=== PATIENT | female | born 1975 | race Asian ===

== ENCOUNTER → 2017-10-04 | Outpatient (CLI) | payer OTHER | LOC: FIMAGING 15:36 | PROVIDERS: ATTEND Family Medicine | DX: N83.202 Unspecified ovarian cyst, left side (principal) ==

== ENCOUNTER 2018-07-31 02:46 | Day surgery (SDC) | payer OTHER ==
[2018-07-31] MEDS ORDERED: ONDANSETRON 4 MG/2 ML VIAL IVP ONE ×3 (02:59→05:42)
[2018-07-31] MEDS ORDERED: fentaNYL 100 MCG/2 ML INJ IVP ONE (03:00)
--- NOTE | 2018-07-31 03:44 | EDPHY ---
H & P Time Seen by Provider: 07/31/18 02:55 HPI/ROS: CHIEF COMPLAINT: Abdominal pain History by patient HISTORY OF PRESENT ILLNESS: 42-year-old woman with a history of multiple ovarian cysts in the past presents complaining of severe left lower quadrant pain which began acutely and has been progressive since midnight, about 2 hr prior to arrival. Patient states that she has had some intermittent episodes of left lower quadrant pain between her menses since she was diagnosed with a cyst on that side in September by ultrasound at an outside hospital. She has never had episode like this before. She has had a large today and cyst removed surgically in the past. She denies . Last menstrual cycle was 2 weeks ago and was normal and on time. Pain does go somewhat into her back and across her abdomen. She tried taking ibuprofen with no relief. REVIEW OF SYSTEMS: As in HPI, and all other systems reviewed and are negative Smoking Status: Never smoked Physical Exam: General Appearance: Alert, uncomfortable appearing. Eyes: Pupils equal and round, extraocular movements intact, no pallor or injection. Mouth: Mucous membranes moist. Pharynx clear Respiratory: Normal, effort, lungs are clear to auscultation. No wheezes, rales or rhonchi. Cardiovascular: Regular rate and rhythm. S1, S2, no murmurs, gallops or rubs appreciated Gastrointestinal: bowel sounds absent, Abdomen is soft and diffusely tender in the lower abdomen with guarding on the left side, no masses Back: No CVA tenderness, no bony tenderness Neurological: Awake, alert and oriented x 3, no pronator drift, normal gait, no pronator drift Skin: Warm and dry, no rashes. Musculoskeletal: No deformities or tenderness. Extremities: full range of motion, no edema Psychiatric: Patient has normal affect, there is no agitation. Constitutional: Initial Vital Signs Temperature (C) 36.6 C 07/31/18 02:49 Heart Rate 72 07/31/18 02:49 Respiratory Rate 18 07/31/18 02:49 O2 Sat (%) 100 07/31/18 02:49 Allergies/Adverse Reactions: latex Allergy (Verified 07/31/18 02:48) penicillin V Allergy (Verified 07/31/18 02:48) Home Medications: Medication Instructions Recorded Motrin (*) 07/31/18 MDM/Departure - MDM Medications Given: Discontinued Medications Fentanyl (Sublimaze) 50 mcg IVP EDNOW ONE Stop: 07/31/18 03:01 Last Admin: 07/31/18 03:27 Dose: 50 mcg Ondansetron HCl (Zofran) 4 mg IVP EDNOW ONE Stop: 07/31/18 03:00 Last Admin: 07/31/18 03:27 Dose: 4 mg ED Course/Re-evaluation: 42-year-old woman with known ovarian cyst presents with acute onset severe left lower quadrant pain with abdominal tenderness. Patient is hemodynamically stable. Initial hemoglobin is within normal limits. Patient is not . I was concerned about ruptured ovarian cyst versus torsion. I performed a bedside ultrasound to evaluate for free fluid and patient had free fluid in the pelvis. She remained hemodynamically stable in the emergency department, but I was concerned about ongoing bleeding for ruptured cyst or complications from ovarian torsion. I discussed the case with Dr. Diane, on-call for senior database programmer who will see the patient at [facility]. I discussed the case with Dr. Llanes in the emergency department at [facility] and the patient was transferred by ambulance for further evaluation and treatment. - Depart Disposition: [facility] Inpatient Acute Clinical Impression: Free fluid in pelvis Abdominal pain Qualifiers: Abdominal location: left lower quadrant Qualified Code(s): R10.32 - Left lower quadrant pain Condition: Fair
[2018-07-31 03:58] LABS: PLATELET COUNT 351 10^3/uL (150-400)
[2018-07-31] MEDS ORDERED: NS 1,000 ML IV ONE (04:13)
--- NOTE | 2018-07-31 04:13 | EDPHY ---
H & P Stated Complaint: C/O LLQ PAIN SINCE 1200- STATES IT IS AN OVARAIN CYST Time Seen by Provider: 07/31/18 02:55 HPI/ROS: HPI CHIEF COMPLAINT: Left lower quadrant abdominal pain, possible ovarian cyst, transfer from [facility] ER. HISTORY OF PRESENT ILLNESS: 42-year-old female, history of ovarian cysts, presents emergency room with left lower quadrant adnexal abdominal pain. States he felt some discomfort yesterday however the pain got worse around midnight rather severe currently 07/08. She went to [facility] ER with a evaluated her. [place] that she had intra-abdominal or pelvic free fluid was recommended to be transferred here for further evaluation. Patient denies any chest pain shortness of breath, denies any vomiting. Denies any abnormal vaginal discharge, denies any diarrhea. Pain is located left adnexa left lower quadrant. Sometimes goes into her left flank. Patient denies being . Lab work reviewed from [facility] ER CBC was stable. Negative test. Past Medical History: She does have a history of ovarian cyst. Past Surgical History: Ovarian cyst removal Social History: Denies drugs alcohol tobacco. Family History: Noncontributory ROS REVIEW OF SYSTEMS: 10 Systems were reviewed and negative with the exception of the elements mentioned in the history of present illness. Exam Constitutional nontoxic triage nursing summary reviewed, vital signs reviewed, awake/alert. Eyes normal conjunctivae and sclera, EOMI, PERRLA. HENT normal inspection, atraumatic, moist mucus membranes, no epistaxis, neck supple/ no meningismus, no raccoon eyes. Respiratory clear to auscultation bilaterally, normal breath sounds, no respiratory distress, no wheezing. Cardiovascular rate normal, regular rhythm, no murmur, no edema, distal pulses normal. Gastrointestinal mild tenderness to palpation left lower quadrant,, no rebound , no guarding, normal bowel sounds, no distension, no pulsatile mass. Genitourinary no CVA tenderness. Musculoskeletal no midline vertebral tenderness, full range of motion, no calf swelling, no tenderness of extremities, no meningismus, good pulses, neurovascularly intact. Skin pink, warm, & dry, no rash, skin atraumatic. Neurologic awake, alert and oriented x 3, AAOx3, moves all 4 extremities equally, motor intact, sensory intact, CN II-XII intact, normal cerebellar, normal vision, normal speech. Psychiatric normal mood/affect. Heme/Lymph/Immune no lymphadenopathy. Differential diagnosis includes but is not limited to and in no particular order : Ruptured ovarian cyst, ovarian torsion, TOA, ectopic Bowel obstruction, appendicitis, gallbladder disease, diverticulitis, colitis, enteritis, perforated viscus, gastritis, GERD, esophagitis, urinary tract infection, pyelonephritis, kidney stones Medical Decision Making: Plan for this patient patient continues to complain of pain. Will Re medicate her with IV fentanyl and IV Zofran. 2nd L fluid. Ultrasound pelvis with flow to rule out torsion ruptured ovarian cyst free fluid. Re-evaluation: Ultrasound results called to me shows a rather large left ovarian cyst 10 cm the left ovary and the cyst make a 12 cm area. Trace free fluid in the pelvis. There is no blood flow to this left ovary. Concerning for ovarian torsion. [id number]: I have consult OBGYN. Consulted and spoke with Dr. Salmeron, with OB, come and see in consult on the patient. Plan for OR for most likely ovarian torsion. Ultrasound results called to me at 5:15 a.m. Concerning for large left ovarian cyst with ovarian torsion no blood flow. Ob is already been consulted. Plan for OR. This called to me by Dr. Winston Source: Patient, EMS - Personal History Current Tetanus Diphtheria and Acellular Pertussis (TDAP): Yes - Medical/Surgical History Other PMH: OVARIAN CYST WITH INTERVENTION 2006 - Social History Smoking Status: Never smoked Constitutional: Initial Vital Signs Temperature (C) 36.6 C 07/31/18 02:49 Heart Rate 72 07/31/18 02:49 Respiratory Rate 18 07/31/18 02:49 O2 Sat (%) 100 07/31/18 02:49 O2 Delivery Mode Room Air Allergies/Adverse Reactions: latex Allergy (Verified 07/31/18 02:48) penicillin V Allergy (Verified 07/31/18 02:48) Medical Decision Making - Data Points Laboratory Results: Laboratory Results 07/31/18 04:42 07/31/18 04:42 Medications Given: Discontinued Medications Hydrocodone Bitart/Acetaminophen ([place] 5/325) 1 - 2 tab PO Q4HRS PRN PRN Reason: PACU, Pain Moderate Stop: 07/31/18 09:22 Last Admin: 07/31/18 12:17 Dose: 1 tab Bupivacaine HCl (Sensorcaine 0.5% Vial) Confirm Administered Dose 30 ml .ROUTE .STK-MED ONE Stop: 07/31/18 06:50 Last Admin: 07/31/18 08:38 Dose: 30 ml Fentanyl (Sublimaze) 50 mcg IVP EDNOW ONE Stop: 07/31/18 03:01 Last Admin: 07/31/18 03:27 Dose: 50 mcg Fentanyl (Sublimaze) 25 - 100 mcg IVP Q5M PRN PRN Reason: PACU, IMMEDIATE Pain control Stop: 07/31/18 09:22 Last Admin: 07/31/18 11:01 Dose: 25 mcg Hydromorphone HCl (Dilaudid) 0.5 mg IVP EDNOW ONE Stop: 07/31/18 04:22 Last Admin: 07/31/18 04:34 Dose: 0.5 mg Hydromorphone HCl (Dilaudid) 0.5 mg IVP EDNOW ONE Stop: 07/31/18 05:05 Last Admin: 07/31/18 05:08 Dose: 0.5 mg Sodium Chloride (Ns) 1,000 mls @ 0 mls/hr IV EDNOW ONE; Wide Open PRN Reason: Protocol Stop: 07/31/18 04:14 Last Admin: 07/31/18 04:35 Dose: 1,000 mls Lactated Ringer's (Lr) 1,000 mls @ 0 mls/hr IV ONCE ONE PRN Reason: As Directed Stop: 07/31/18 07:05 Last Admin: 07/31/18 07:24 Dose: 1,000 mls Ondansetron HCl (Zofran) 4 mg IVP EDNOW ONE Stop: 07/31/18 03:00 Last Admin: 07/31/18 03:27 Dose: 4 mg Ondansetron HCl (Zofran) 4 mg IVP EDNOW ONE Stop: 07/31/18 04:38 Last Admin: 07/31/18 04:39 Dose: 4 mg Ondansetron HCl (Zofran) 4 mg IVP EDNOW ONE Stop: 07/31/18 05:43 Last Admin: 07/31/18 05:43 Dose: 4 mg Promethazine HCl (Phenergan) 6.25 mg IVP ONCE ONE Stop: 11/02/18 06:28 Last Admin: 07/31/18 06:27 Dose: 6.25 mg Point of Care Test Results: Chemistry 07/31/18 07/31/18 03:20 03:18 POC Sodium 141 mEq/L mEq/L 140 mEq/L mEq/L (135-145) (135-145) POC Potassium 3.3 mEq/L mEq/L 3.3 mEq/L mEq/L (3.3-5.0) (3.3-5.0) POC Chloride 108.0 mEq/L mEq/L 106 mEq/L mEq/L (97-110) (97-110) POC Total CO2 19 mEq/L L mEq/L (22-31) POC BUN 16 mg/dL mg/dL 18 mg/dL mg/dL (7-23) (7-23) POC Creatinine 0.6 mg/dL mg/dL 0.6 mg/dL mg/dL (0.6-1.0) (0.6-1.0) POC Glucose 128 mg/dL H mg/dL 130 mg/dL H mg/dL (70-100) (70-100) POC Calcium 9.6 mg/dL mg/dL (8.5-10.4) POC Total Bilirubin 0.7 mg/dL mg/dL (0.1-1.4) POC AST 40 IU/L IU/L (14-46) POC ALT 61 IU/L H IU/L (9-52) POC Alk Phosphatase 50 IU/L IU/L (38-126) POC Total Protein 8.4 g/dL H g/dL (6.3-8.2) POC Albumin 4.4 g/dL g/dL (3.5-5.0) ISTAT H&H 07/31/18 03:18 POC Hgb 15.0 gm/dL gm/dL (12.6-16.3) POC Hct 44 % % (38-47) Urine Collection Date 07/31/18 Collection Time 03:58 HCG Results Negative Departure - Departure Disposition: [facility] Inpatient Acute Clinical Impression: Free fluid in pelvis, Ovarian torsion Abdominal pain Qualifiers: Abdominal location: left lower quadrant Qualified Code(s): R10.32 - Left lower quadrant pain Ovarian cyst Qualifiers: Laterality: left Qualified Code(s): N83.202 - Unspecified ovarian cyst, left side Condition: Good
[2018-07-31] MEDS ORDERED: HYDROmorphONE/DILAUDID 2 MG/ML INJ IVP ONE ×2 (04:21→05:04)
[2018-07-31] MEDS ORDERED: ONDANSETRON 4 MG/2 ML VIAL ONE ×2 (04:38→07:30)
[2018-07-31 04:53] LABS: PLATELET COUNT 308 10^3/uL (150-400)
[2018-07-31] MEDS ORDERED: HYDROmorphONE/DILAUDID 2 MG/ML INJ ONE (05:05)
[2018-07-31] MEDS ORDERED: PROMETHAZINE HCL 25 MG/ML INJ ONE (06:24)
[2018-07-31] MEDS ORDERED: PROMETHAZINE HCL 25 MG/ML INJ IVP ONE (06:27)
[2018-07-31] MEDS ORDERED: BUPIVACAINE 0.5% 30 ML SDV ONE (06:49)
[2018-07-31] MEDS ORDERED: LR 1,000 ML IV ONE (07:04)
[2018-07-31] MEDS ORDERED: MIDAZOLAM 2 MG/2 ML VIAL ONE (07:24)
[2018-07-31] MEDS ORDERED: PROPOFOL 200 MG/20 ML VIAL ONE (07:26)
[2018-07-31] MEDS ORDERED: fentaNYL 100 MCG/2 ML INJ ONE ×2 (07:26→10:59)
[2018-07-31] MEDS ORDERED: SUCCINYLCHOLINE CHLORIDE 200 MG/10 ML SYR IVP ONE (07:29)
[2018-07-31] MEDS ORDERED: ROCURONIUM 50 MG/5 ML VIAL ONE (07:29)
[2018-07-31] MEDS ORDERED: PHENYLEPHRINE HCL 100 MCG/ML SYR ONE (07:29)
[2018-07-31] MEDS ORDERED: LIDOCAINE 2% 2 ML INJ ONE ×2 (07:30)
[2018-07-31] MEDS ORDERED: KETOROLAC 30 MG/1 ML SDV ONE (07:30)
[2018-07-31] MEDS ORDERED: DEXAMETHASONE 4 MG/ML VIAL ONE (07:30)
[2018-07-31] MEDS ORDERED: CLINDAMYCIN 900 MG/DEXTROSE 50 ML IV ONE (07:33)
[2018-07-31] MEDS ORDERED: MIDAZOLAM 2 MG/2 ML VIAL IVP ONE (07:34)
--- NOTE | 2018-07-31 07:34 | PDHPUP ---
History & Physical Update H&P update statement: This history and physical update is based on an assessment of the patient which was completed after admission or registration (within 24 hours), but prior to the surgery/procedure. H&P update: H&P reviewed & patient examined, no change in patient's condition since H&P completed
--- NOTE | 2018-07-31 07:35 | PDANEPAE ---
ANE History of Present Illness ovarian torsion ANE Past Medical History - Cardiovascular History Hx Hypertension: No Hx Arrhythmias: No Hx Chest Pain: No Hx Coronary Artery / Peripheral Vascular Disease: No Hx CHF / Valvular Disease: No Hx Palpitations: No - Pulmonary History Hx COPD: No Hx Asthma/Reactive Airway Disease: No Hx Recent Upper Respiratory Infection: No Hx Oxygen in Use at Home: No Hx Sleep Apnea: No ANE Review of Systems Review of systems is: negative Review of Systems: - Exercise capacity Exercise capacity: >=4 METS ANE Patient History - Allergies Allergies/Adverse Reactions: latex Allergy (Verified 07/31/18 02:48) penicillin V Allergy (Verified 07/31/18 02:48) - Home Medications Home medications: home medication list seen and reviewed Home Medications: Motrin (*) 07/31/18 [Last Taken Unknown] - NPO status NPO Since - Liquids (Date): 07/31/18 NPO Since - Liquids (Time): 01:00 NPO Since - Solids (Date): 07/30/18 NPO Since - Solids (Time): 18:00 - Anes Hx Anes Hx: no prior problems - Smoking Hx Smoking Status: Never smoked ANE Labs/Vital Signs - Labs Result Diagrams: 07/31/18 04:42 07/31/18 04:42 - Vital Signs Blood Pressure: 112/61 Heart Rate: 82 Respiratory Rate: 16 O2 Sat (%): 98 Height: 160.02 cm Weight: 47.627 kg ANE Physical Exam - Airway Neck exam: FROM Mallampati Score: Class 2 Mouth exam: normal dental/mouth exam - Pulmonary Pulmonary: no respiratory distress - Cardiovascular Cardiovascular: regular rate and rhythym - ASA Status ASA Status: I, E ANE Anesthesia Plan Anesthesia Plan: general endotracheal anesthesia Urgent/Emergent Case: Keiraagnieszka pachecoemerson completed preop but documented later for safe timely pt care
--- NOTE | 2018-07-31 07:52 | PDGENHP ---
History and Physical - Chief Complaint Acute LLQ pain - History of Present Illness 42 yo presented to [facility] ER early this AM with acute onset LLQ pain that was continuous, excruciating, waxing/waning. Brief US at ER suggested large cyst or cyst rupture - transferred to [facility] ER were TVUS confirmed 10cm simple left ovarian cyst with definite torsion - no flow to that ovary. Right ovary normal. Pt confirms that she's had a long h/o large ovarian cysts. First in 2011 when a unilateral (she can't remember side) large simple cyst was laparoscopically drained/cystectomy. Then just earlier this year she was being worked up by [facility] for a RIGHT sided 10cm simple cyst with no acute concern for torsion. They had a plan to goto OR but never went because they moved houses and she wasn't really symptomatic. This pain began yesterday evening, she was not aware of these new findings of now NO cyst on the right and new large 10cm simple cyst on the left. History Information - Allergies/Home Medication List Allergies/Adverse Reactions: latex Allergy (Verified 07/31/18 02:48) penicillin V Allergy (Verified 07/31/18 02:48) Home Medications: Motrin (*) 07/31/18 [Last Taken Unknown] I have personally reviewed and updated: family history, medical history, social history, surgical history - Past Medical History no pertinent PMH - Surgical History Additional surgical history: H/o LS ovarian cystectomy in 2011, x 2 - Family History Positive for: non-pertinent - Social History Smoking Status: Never smoked Review of Systems Review of Systems: ROS: 10pt was reviewed & negative except for what was stated in HPI & below Physical Exam Physical Exam: Temp Pulse Resp BP Pulse Ox 36.9 C 82 16 112/61 98 07/31/18 06:33 07/31/18 07:35 07/31/18 07:35 07/31/18 07:35 07/31/18 07:35 O2 (L/minute) 2 Constitutional: appears nourished, uncomfortable Eyes: PERRL, anicteric sclera Ears, Nose, Mouth, Throat: moist mucous membranes, hearing normal Respiratory: no respiratory distress Gastrointestinal: no palpable masses, tenderness (LLQ to light and deep palp), No ascites, No galvez's sign, No hepatosplenomegally, No guarding, No rebound, No distension Genitourinary: no bladder fullness Skin: warm, normal color Musculoskeletal: full muscle strength, no muscle tenderness Psychiatric: interacting appropriately Lab Data & Imaging Review 07/31/18 04:42 07/31/18 04:42 WBC 8.39 10^3/uL (3.80-9.50) 07/31/18 04:42 RBC 3.90 10^6/uL (4.18-5.33) L 07/31/18 04:42 Hgb 13.0 g/dL (12.6-16.3) 07/31/18 04:42 POC Hgb 15.0 gm/dL (12.6-16.3) 07/31/18 03:18 Hct 37.5 % (38.0-47.0) L 07/31/18 04:42 POC Hct 44 % (38-47) 07/31/18 03:18 MCV 96.2 fL (81.5-99.8) 07/31/18 04:42 MCH 33.3 pg (27.9-34.1) 07/31/18 04:42 MCHC 34.7 g/dL (32.4-36.7) 07/31/18 04:42 RDW 11.9 % (11.5-15.2) 07/31/18 04:42 Plt Count 308 10^3/uL (150-400) 07/31/18 04:42 MPV 9.2 fL (8.7-11.7) 07/31/18 04:42 Neut % (Auto) 80.4 % (39.3-74.2) H 07/31/18 04:42 Lymph % (Auto) 15.0 % (15.0-45.0) 07/31/18 04:42 Young % (Auto) 2.9 % (4.5-13.0) L 07/31/18 04:42 Eos % (Auto) 1.0 % (0.6-7.6) 07/31/18 04:42 Baso % (Auto) 0.2 % (0.3-1.7) L 07/31/18 04:42 Nucleat RBC Rel Count 0.0 % (0.0-0.2) 07/31/18 04:42 Absolute Neuts (auto) 6.75 10^3/uL (1.70-6.50) H 07/31/18 04:42 Absolute Lymphs (auto) 1.26 10^3/uL (1.00-3.00) 07/31/18 04:42 Absolute Monos (auto) 0.24 10^3/uL (0.30-0.80) L 07/31/18 04:42 Absolute Eos (auto) 0.08 10^3/uL (0.03-0.40) 07/31/18 04:42 Absolute Basos (auto) 0.02 10^3/uL (0.02-0.10) 07/31/18 04:42 Absolute Nucleated RBC 0.00 10^3/uL (0-0.01) 07/31/18 04:42 Immature Gran % 0.5 % (0.0-1.1) 07/31/18 04:42 Immature Gran # 0.04 10^3/uL (0.00-0.10) 07/31/18 04:42 RBC/WBC/PLT Morphology TNP 07/31/18 02:50 Platelet Estimate TNP 07/31/18 02:50 POC Sodium 141 mEq/L (135-145) 07/31/18 03:20 Sodium 138 mEq/L (135-145) 07/31/18 04:42 POC Potassium 3.3 mEq/L (3.3-5.0) 07/31/18 03:20 Potassium 4.1 mEq/L (3.3-5.0) 07/31/18 04:42 POC Chloride 108.0 mEq/L (97-110) 07/31/18 03:20 Chloride 109 mEq/L (97-110) 07/31/18 04:42 Carbon Dioxide 18 mEq/l (22-31) L 07/31/18 04:42 POC Total CO2 19 mEq/L (22-31) L 07/31/18 03:20 Anion Gap 11 mEq/L (6-14) 07/31/18 04:42 POC BUN 16 mg/dL (7-23) 07/31/18 03:20 BUN 17 mg/dL (7-23) 07/31/18 04:42 Creatinine 0.6 mg/dL (0.6-1.0) 07/31/18 04:42 POC Creatinine 0.6 mg/dL (0.6-1.0) 07/31/18 03:20 Estimated GFR > 60 07/31/18 04:42 Glucose 119 mg/dL (70-100) H 07/31/18 04:42 POC Glucose 128 mg/dL (70-100) H 07/31/18 03:20 POC Calcium 9.6 mg/dL (8.5-10.4) 07/31/18 03:20 Calcium 9.0 mg/dL (8.5-10.4) 07/31/18 04:42 POC Total Bilirubin 0.7 mg/dL (0.1-1.4) 07/31/18 03:20 POC AST 40 IU/L (14-46) 07/31/18 03:20 POC ALT 61 IU/L (9-52) H 07/31/18 03:20 POC Alk Phosphatase 50 IU/L (38-126) 07/31/18 03:20 POC Total Protein 8.4 g/dL (6.3-8.2) H 07/31/18 03:20 POC Albumin 4.4 g/dL (3.5-5.0) 07/31/18 03:20 Patient ABO/Rh A POSITIVE 07/31/18 05:10 Antibody Screen NEGATIVE 07/31/18 05:10 Imaging Review: LEFT OVARIAN TORSION WITH ENLARGED LEFT OVARY 14 X 13 X 9 CM WITH LARGE SIMPLE CYST 10 X 9 CM AND LACK OF LEFT OVARY DOPPLER FLOW CONSISTENT WITH ACUTE LEFT OVARY TORSION NORMAL RIGHT OVARY THICK ENDOMETRIUM 17 CM SMALL AMOUNT OF PELVIC FLUID DISCUSSED WITH DR STORM AT 0516 Authored by: Rashawn Winston Authored on: 31-Jul-2018 05:21 Assessment & Plan Assessment: Abdominal pain (Acute) Free fluid in pelvis (Acute) Ovarian torsion (Acute) 42 yo with large simple 10cm left ovarian cyst and ovarian torsion. - Discussed history and acute presentation with partner and pt. - Discussed tx options in this situation - counseled them that we recommend surgery to try to reestablish bloodflow to and save the ovary. They are comfortable with that plan. - RBA discussed and consents signed in person for DxLS, drainage of unilateral ovarian cyst, possible cystectomy, possible salpingo-oophorectomy. - CBC and T&S acquired on admission. - Likely home later today after OR. Discussed option of OCP's going forward as an option for reducing incidence of ovarian cysts. FER
[2018-07-31] MEDS ORDERED: ONDANSETRON 4 MG/2 ML VIAL IVP PRN (08:22)
[2018-07-31] MEDS ORDERED: ALBUTEROL 3 ML DEYVIAL IH PRN (08:22)
[2018-07-31] MEDS ORDERED: oxyCODONE IR 5 MG TAB PO PRN (08:22)
[2018-07-31] MEDS ORDERED: LABETALOL HCL 5 MG/ML 20 ML MDV IVP PRN (08:22)
[2018-07-31] MEDS ORDERED: NALOXONE HCL 0.4 MG/ML INJ IVP PRN (08:22)
[2018-07-31] MEDS ORDERED: LR 500 ML IV PRN (08:22)
[2018-07-31] MEDS ORDERED: ACETAMINOPHEN 500 MG TAB PO PRN (08:22)
[2018-07-31] MEDS ORDERED: fentaNYL 100 MCG/2 ML INJ IVP PRN (08:22)
[2018-07-31] MEDS ORDERED: HYDROmorphONE/DILAUDID 2 MG/ML INJ IVP PRN (08:22)
[2018-07-31] MEDS ORDERED: HYDROCODONE/APAP 5/325 TAB PO PRN (08:22)
--- NOTE | 2018-07-31 08:33 | POSTANESTH ---
Post Anesthetic Evaluation Cardiovascular Status: Normal, Stable Respiratory Status: Normal, Stable Level of Consciousness/Mental Status: Can Participate in Eval, Mildly Sleepy, Arousable Pain Control: Adequate, Prn Tx Ordered Nausea/Vomiting Control: Adequate, Prn Tx Ordered Complications Possibly Related to Anesthesia: None Noted
[2018-07-31] MEDS ORDERED: SUGAMMADEX SODIUM 200 MG/2 ML VIAL IVP ONE (08:50)
--- NOTE | 2018-07-31 10:28 | POSTOPPROG ---
Post Op Note Date of Operation: 07/31/18 Surgeon: Alejandra Ward Lead Javascript Developer: Ashia RAZA; Reba Griffin MD Anesthesiologist: Aguilar Ospina Anesthesia: GET(General Endotracheal) Pre-op Diagnosis: LLQ pain; large left ovarian cyst; left ovarian torsion Post-op Diagnosis: LLQ pain; large left ovarian cyst; left ovarian torsion; left hydrosalpinx Indication: 42 y/o G2 w/ h/o ov cysts c/o LLQ pain with 10 cm cyst L ovary, no flow u/s Procedure: Dx Laparoscopy with drainage of L ov cyst, L cystectomy and L salpingectomy Findings: Grossly normal uterus, R tube/ovary; lg 10 cm multicystic L ovary torsedx2 Inf/Abcess present in the surg proc area at time of surgery?: No Depth: Organ Space EBL: 50-100 (25cc) Total fluids administered: 900 cc LR UO: 150 cc clear urine at the end Complications: none Specimen(s): L fallopian tube, L ovarian cyst and cyst wall
[2018-07-31 11:35] VITALS: BP 99/61
[2018-07-31] MEDS ORDERED: HYDROCODONE/APAP 5/325 TAB ONE (12:10)
--- NOTE | 2018-07-31 21:51 | GOP ---
DATE OF OPERATION: 07/31/2018 SURGEON: Alejandra Ward DO GRAVITY PROSPECTOR: RY Almonte; Reba Griffin MD. ANESTHESIA: General endotracheal. ANESTHESIOLOGIST: Aguilar Ospina MD. PREOPERATIVE DIAGNOSIS: 1. Left lower quadrant abdominal pelvic pain. 2. Large left ovarian cyst. 3. Left ovarian torsion. POSTOPERATIVE DIAGNOSIS: 1. Left lower quadrant abdominal pelvic pain. 2. Large left ovarian cyst. 3. Left ovarian torsion. 4. Enlarged left fallopian tube, suspect hydrosalpinx. PROCEDURE PERFORMED: Diagnostic laparoscopy with drainage of left ovarian cyst , left ovarian cystectomy and left salpingectomy. FINDINGS: Grossly normal-appearing uterus, right tube and ovary. A large 10 cm multicystic left ovary was noted and it was torsed 2 times. About 180 cc serous fluid was removed upon drainage of the cyst. Enlarged left tube and fimbriae, appeared to be hydrosalpinx. No free fluid noted in cul-de-sac. Upper abdomen grossly normal appearing. SPECIMENS: Left fallopian tube, left ovarian cyst and cyst wall. ESTIMATED BLOOD LOSS: 25 cc. INDICATIONS: The patient is a 42-year-old, G2, P2, who presented to the ER early this morning with acute onset of left lower quadrant abdominal pain that was continuous, excruciating, waxing and waning. Ultrasound was done and suggested a large simple cyst left ovary 10 x 9 cm, left ovary measuring 14 x 13 x 9 cm without flow consistent with acute left ovarian torsion. The patient does confirm she has had a history of large ovarian cysts, 1st in 2011 when a unilateral large simple cyst was laparoscopically drained, she also had the cystectomy removed. Then, just earlier this year she was being worked up by [facility] for right-sided 10 cm simple cyst with no acute concern for torsion. They had planned to go back to the operating room, but never went because they moved and she was asymptomatic at that time. She states the pain began yesterday evening. The patient does endorse nausea and vomiting. She vomited in the ER twice. Denies any GI or symptoms. Discussed proceeding to the OR for a laparoscopy to untorse the ovary, drain the cyst, remove the cyst, and possible removal of the ovary if tissue does not appear viable. Discussed risks, benefits, alternatives of the procedure including, but not limited to, bleeding, infection, and damage to surrounding organs. Patient understands all risks of the procedure and wants to proceed with surgery at this time. Patient was properly consented. DESCRIPTION OF PROCEDURE: Patient was taken to the operating room where general anesthesia was obtained without difficulty. She was prepped and draped in the usual sterile fashion, and placed in dorsal lithotomy position. A Katz catheter was placed in her bladder at this time. After a WHO time-out was performed, attention was turned to the vagina where a weighted speculum was placed in vagina. The anterior lip of the cervix was grasped with an Allis clamp. The uterus was then sounded to 7-8 cm and an War manipulator was then placed inside the cervix to provide a means to manipulate the uterus. We then turned our attention to the abdomen where 0.5% local of plain Marcaine was injected. Then a 5 mm skin incision was made in the umbilical fold with a knife. A Veress needle was then advanced carefully while tenting the abdominal wall without difficulty. Aspiration was negative and pneumoperitoneum was obtained. The Veress needle was then removed and a 5 mm trocar and a 0 degree scope were then placed through this incision and we entered directly into the abdomen without difficulty, and pelvic anatomy was visualized. After injecting more local in the right and left side of the lower abdomen, a 5 mm skin incision was made on the left and a 10 mm skin incision was made on the right. Atraumatic trocars were then placed under direct visualization without difficulty. The patient was then placed in Trendelenburg position. Exam of the pelvis revealed the findings above. At this time the left ovary appeared to be multicystic, and enlarged to about 10 cm. Using a 5mm aspiration needle, the cyst was drained and about 180 cc of serous fluid was noted. The cyst then collapsed making it easier to manipulate. It was noted to be torsed 2 times and using a blunt grasper, the ovary was un-torsed twice without difficulty. The puncture hole in the cyst was made larger using a scissors and the remainder of the fluid was suction irrigated. We then turned our attention to the cyst wall and using both blunt dissection and hydrodissection, the cyst wall was finally removed using countertraction. There remained a lot of redundant ovarian tissue which was cauterized and then transected using the LigaSure. Hemostasis was noted. The ovarian bed was then irrigated and dried. There was some slight oozing noted near the edges of the ovary. Hemostasis was achieved after using the LigaSure. There still remained 2 cystic areas noted on the ovary. These were coagulated and cut using the LigaSure, and sent to Pathology. Hemostasis was noted. There was normal- appearing ovarian tissue at this time. The pelvis was then irrigated copiously with normal saline. We then visualized the enlarged left tube and at this time, the tube was transected from the cornua insertion of the uterus using LigaSure and sent to Pathology. All the pedicles appeared hemostatic as well as the bed of the ovary. Clemente was placed on the ovarian bed for further hemostasis. The fascia of the 10 mm incision was then closed using Darrel-Joaquina fashion with 0 Vicryl. All instruments were then removed from the abdomen. Gas was allowed to escape from the abdomen. The lower abdominal incisions were then closed with 3-0 Monocryl and covered with steri strips. The umbilical incision was closed with Dermabond. We the went down below and removed the War manipulator, Allis clamp. Hemostasis was noted and no bleeding noted from lip of cervix. Katz catheter was removed. The patient tolerated the procedure well. No complications. Sponge, needle, and instrument counts correct x2. The patient was then taken out of dorsal lithotomy position, awakened and taken to recovery room in stable condition. IV FLUIDS: 900 cc LR. URINE OUTPUT: 150 cc of clear urine at the end of procedure. COMPLICATIONS: None. /[id number]/MODL MTDD
== END 2018-07-31 12:43 ==
LOC: CED 02:46 → UNDOADMOB 05:06 → MERGE 05:06 → FSGY 05:06 → UNDODISOB 12:43 → FSGY 12:43
PROVIDERS: ATTEND Obstetrics & Gynecology
DX: N83.512 Torsion of left ovary and ovarian pedicle (principal); N83.202 Unspecified ovarian cyst, left side; R10.32 Left lower quadrant pain; N83.9 Noninflammatory disorder of ovary, fallopian tube and broad ligament, unspecified; E86.9 Volume depletion, unspecified; Z88.0 Allergy status to penicillin
CPT/HCPCS: 80053-PO; 82435-PO; 82565-PO; 82947-PO; 84132-PO; 84295-PO; 84520-PO; 85014-PO; 96374; J0330; J1100; J1170; J1885; J2250; J2370; J2405; J2550; J2704; J3010